=== PATIENT | female | born 1985 | race Caucasian/White ===

== ENCOUNTER → 2022-04-15 12:51 | Outpatient (CLI) | payer OTHER, SELFPAY ==
--- NOTE | 2022-04-15 11:45 | DI.RAD_ITS ---
Exam(s) XR TIB/FIB RT EXAM: XR TIB/FIB RT CLINICAL HISTORY: Anterior leg pain, M79.606, Concern for Foreign Body - Distal/Anterior Leg. TECHNIQUE: 2D digital imaging was performed. COMPARISON: No exams were available for comparison FINDINGS: Two views There is no evidence of fracture nor osseous lesions. However, the tip of the lateral malleolus at t he ankle level is not included in the field of view here. Tibial plateau appears unremarkable. Phle boliths are noted anteriorly. Bone density normal. No osseous lesions. IMPRESSION: No significant radiograph findings although please note the tip of the inferior malleolus is not incl uded in the field of view. If clinically indicated ankle images can be performed. DATA REPOSITORY: RADIATION DOSE DELIVERED:
== END ==
PROVIDERS: Visit Provider Nurse Practitioner Family
DX: M79.604 Pain in right leg (principal)
CPT/HCPCS: 73590

== ENCOUNTER 2024-08-26 03:34 | Outpatient (CLI) | payer OTHER, SELFPAY ==
[2024-08-26 10:13] LABS: HGB 13.9 g/dL (11.2-15.7); MCH 29.6 pg (27.0-33.0); MCHC 32.3 % (32.0-36.0); MCV 92 fL (80-95); MPV 9.5 fL (8.0-11.0); Platelet Count 286 10^3/uL (130-400); RBC 4.69 10^6/uL (3.93-5.22); RDW 12.7 % (11.7-14.6); RDW-SD 42.3 fL; WBC 8.11 10^3/uL (4.4-10.8)
[2024-08-26 10:23] LABS: Anion Gap 5.9 mmol/L (3-11); BUN 14 mg/dL (7-18); CO2 26.1 mmol/L (21.0-32.0); CREATININE 0.7 mg/dL (0.55-1.02); Calcium 9.3 mg/dL (8.5-10.1); Chloride 108 mmol/L (98-107); Estimated GFR 111.36 (mL/min/1.73m2); Glucose 99 mg/dL (74-106); Potassium 4.3 mmol/L (3.5-5.1); Sodium 140 mmol/L (136-145)
[2024-08-26 10:37] LABS: TSH (W/Ref FT4) 3.03 uIU/mL (0.36-3.74)
== END 2024-08-26 03:35 | disposition home or self-care (01) ==
LOC: LBO 03:34
PROVIDERS: Physician Assistant; PCP Family Medicine; Visit Provider Student in an Organized Health Care Education/Training Program
DX: M17.11 Unilateral primary osteoarthritis, right knee (principal); Z01.818 Encounter for other preprocedural examination; E03.9 Hypothyroidism, unspecified
CPT/HCPCS: 36415; 80048; 85027; 84443

== ENCOUNTER 2024-08-26 10:25 | Outpatient (CLI) | payer OTHER, SELFPAY ==
--- NOTE | 2024-08-26 08:45 | DI.RAD_ITS ---
Exam(s) XR STANDING ALIGNMENT XR KNEE RT 1V EXAM: XR STANDING ALIGNMENT CLINICAL HISTORY: PRE OP RIGHT TKA. TECHNIQUE: 2D digital imaging was performed. Standing AP views were performed from the pelvis throu gh the ankles. Lateral view of the right knee COMPARISON: CR XR TIB/FIB RT from 04/15/2022 CR XR KNEE 3V RT from 05/14/2023 CR XR KNEE RT 1V from 08/26/2024 FINDINGS: BONES: No acute fracture is present. No bony destructive lesion is seen. Leg length discrepancy: No significant overall leg length discrepancy. JOINTS: Knees: Severe narrowing of the medial femoral tibial joint space of the right knee. Periarti cular spurring throughout. The femoral tibial joint spaces of the left knee are maintained. Mild sp urring laterally. The ankle joints are unremarkable. The hip joints show mild joint space narrowing bilaterally. SOFT TISSUE: Normal. IMPRESSION: Advanced degenerative changes of the medial femoral tibial joint space of the right knee. No significant leg length discrepancy. DATA REPOSITORY: RADIATION DOSE DELIVERED:
== END 2024-08-26 10:26 | disposition home or self-care (01) ==
LOC: DIORS 15:43
PROVIDERS: PCP Family Medicine; Visit Provider Physician Assistant
DX: M17.11 Unilateral primary osteoarthritis, right knee (principal)
CPT/HCPCS: 73560; 77073

== ENCOUNTER 2024-09-07 07:14 | Day surgery (SDC) | payer OTHER, SELFPAY ==
[2024-09-07] VITALS (41 sets, daily range): BP systolic 99–156; BP diastolic 33–84; PULSE 56–70; RESP 11–23; TEMP 36.3–36.8; O2SAT 92–100; BMI 44.1
--- NOTE | 2024-09-07 06:53 | W.ANESPRE ---
General Info Date of Service Date Performed: 09/07/24 Height: 5 ft 10 in Weight: 139.706 kg Body Mass Index (BMI): 44.1 Surgical Procedure: Operation Date: 09/07/24 09:25 Proposed Procedure Side Surgeon p Knee Total Arthroplasty, Cementless CR Right Magnus Hagan MD Meds Allergies and Home Medications Allergies Allergy/AdvReac Type Severity Reaction Status Date / Time codeine Allergy Intermediate Hives Verified 09/07/24 07:45 Home Medication ?Medication ?Instructions ?Recorded bisoprolol fumarate 5 mg tablet 5 mg PO DAILY 04/16/22 sertraline 100 mg tablet 100 mg PO DAILY 04/16/22 norethindrone (contraceptive) 0.35 0.35 mg PO DAILY 05/14/24 mg tablet (Audra-BE) cyclobenzaprine 10 mg tablet 10 mg PO HS PRN 08/26/24 hydroxyzine HCl 50 mg tablet 50 mg PO QHS PRN 08/26/24 acetaminophen 500 mg tablet 1,000 mg (2 x 500 mg) PO Q8H PRN 09/07/24 pain #90 tabs aspirin 81 mg tablet,delayed 81 mg PO BID 30 days #60 tabs 09/07/24 release celecoxib 200 mg capsule (Celebrex) 200 mg PO BID PRN #60 caps 09/07/24 dexamethasone 4 mg tablet 4 mg PO DAILY #2 tabs 09/07/24 docusate sodium 100 mg capsule 100 mg PO BID #30 caps 09/07/24 (Colace) gabapentin 300 mg capsule 300 mg PO QHS #14 caps 09/07/24 oxycodone 5 mg tablet 5 mg PO Q4H PRN #18 tabs 09/07/24 pantoprazole 40 mg tablet,delayed 40 mg PO DAILY #14 tabs 09/07/24 release Current Visit Medications: Current Medications Generic Name Dose Route Start Last Admin Trade Name Freq PRN Reason Stop Dose Admin Acetaminophen 1,000 mg 09/07/24 06:00 Acetaminophen 500 Mg Tab PO 09/07/24 23:59 PREOP LIBBY Celecoxib 400 mg 09/07/24 06:00 Celecoxib 200 Mg Cap PO 09/07/24 23:59 PREOP LIBBY Gabapentin 300 mg 09/07/24 06:00 Gabapentin 300 Mg Cap PO 09/07/24 23:59 PREOP LIBBY Ringer's Solution 1,000 mls @ 80 mls/hr 09/07/24 06:00 IV 09/07/24 23:59 INFUSION LIBBY Cefazolin Sodium 3,000 mg/ 100 mls @ 200 mls/hr 09/07/24 06:00 Sodium Chloride IV 09/07/24 23:59 PREOP LIBBY Tranexamic Acid/Sodium Chloride 1,000 mg in 100 mls @ 600 mls/hr 09/07/24 06:00 IVPB 09/07/24 23:59 PREOP LIBBY IV Miscellaneous Supplies 1 each 09/07/24 06:00 Iv Access IV 09/07/24 23:59 DIRECTED LIBBY Sodium Chloride 0 ml 09/07/24 06:00 Normal Saline Flush 10 Ml Syr IV 09/07/24 23:59 PRN PRN Sodium Chloride 0 ml 09/07/24 06:00 Normal Saline 10 Ml Vial IJ 09/07/24 23:59 DIRECTED PRN Sterile Water 0 ml 09/07/24 06:00 Water,Injection,Sterile 10 Ml Vial IJ 09/07/24 23:59 DIRECTED PRN PFSH Active Problems Active Problems: Problem Status Onset Code Osteoarthritis of right knee Acute M17.11 Vesicular eczema of hands and feet Acute L30.1 Sleep apnea Acute G47.30 Restless legs Acute G25.81 Nicotine dependence Acute F17.200 Morbid obesity Acute E66.01 Acute eczema Chronic L30.9 Hypothyroidism Chronic E03.9 Anxiety Chronic F41.9 Depression Chronic F32.A Hypertension Chronic I10 Anterior leg pain Acute M79.606 Surgical History Surgical History Hx of wisdom tooth extraction Tobacco Smoking/Tobacco Use Status: Current every day Tobacco Type: cigarettes Second hand exposure: Yes Counseling given: provider counseling Alcohol Alcohol Intake: never Substance Use Substance use: Never Substance use type: does not use Vital Signs and Lab Results Vital Signs Most Recent Vital Signs in EMR: Temp Pulse Resp BP Pulse Ox 36.3 C L 63 16 156/84 H 100 09/07/24 07:34 09/07/24 07:34 09/07/24 07:34 09/07/24 07:34 09/07/24 07:34 Lab Results Blood Type / Crossmatch: No Data to Display Complete Blood Count: White Blood Count 8.11 10^3/uL (4.4-10.8) 08/26/24 10:07 Red Blood Count 4.69 10^6/uL (3.93-5.22) 08/26/24 10:07 Hemoglobin 13.9 g/dL (11.2-15.7) 08/26/24 10:07 Hematocrit 43.0 % (36.0-46.0) 08/26/24 10:07 Platelet Count 286 10^3/uL (130-400) 08/26/24 10:07 Complete Metabolic Panel: Sodium 140 mmol/L (136-145) 08/26/24 10:07 Potassium 4.3 mmol/L (3.5-5.1) 08/26/24 10:07 Chloride 108 mmol/L (98-107) H 08/26/24 10:07 Carbon Dioxide 26.1 mmol/L (21.0-32.0) 08/26/24 10:07 BUN 14 mg/dL (7-18) 08/26/24 10:07 Creatinine 0.7 mg/dL (0.55-1.02) 08/26/24 10:07 Est GFR (CKD-EPI 2020) 111.36 (mL/min/1.73m2) 08/26/24 10:07 Calcium 9.3 mg/dL (8.5-10.1) 08/26/24 10:07 Glucose 99 mg/dL (74-106) 08/26/24 10:07 Liver Function Panel: No Data to Display Coagulation Panel: No Data to Display Cardiac Panel: No Data to Display Arterial Blood Gas: No Data to Display Venous Blood Gas: No Data to Display Pancreas Panel: No Data to Display Thyroid Panel: Thyroid Stimulating Hormone (TSH) 3.03 uIU/mL (0.36-3.74) 08/26/24 10:07 Infectious Disease: No Data to Display Blood Cultures: No Data to Display Toxicology Panel: No Data to Display Panel: No Data to Display Anesthesia Assessment and Plan Anesthesia History Personal History: No History of Anesthesia Complications Family History: No Family History of Anesthesia Complications Exercise Tolerance Exercise Tolerance: Metabolic Equivalents>4 Cardiac & Pulmonary Exam Cardiac Exam: Normal S1/S2 Heart Sounds Pulmonary Exam: Clear Bilateral Breath Sounds Implantable Cardiac Device Does patient have a Pacemaker or an ICD?: No Airway Exam Known Difficult Airway: No Mallampati Class: 3 Mouth Opening: Normal (> 3cm) Thyromental Distance: Less than 3 cm Neck Range of Motion: Full ROM Neck Circumference: Thick Teeth Condition: Normal Dentition ASA Classification ASA Score: ASA 3 Emergency Case?: No NPO Status NPO Status: NPO Clears >2 hours, Solids >8 hours Status Status: Negative HCG Anesthesia Plan Resuscitation Status: Full Code Anesthesia Technique: Spinal Anesthesia Airway Planned: Natural Airway Pain Management: Surgeon and patient request nerve block Monitors Used: Standard Monitors Preoperative Comments:: 39 yo female for TKA. Sig PMHx: HTN (bisoprolol), RLA, anxiety/depression, hypothyroid (last TSH WNL, not on meds), BMI >40, smoker. Denies GERD. Appropriately NPO, currently hungry.
--- NOTE | 2024-09-07 07:25 | PDOC.DSDIS_ITS ---
Date of service: 09/07/24 Discharge Plan Disposition Patient Disposition: Home Condition: Good Discharge Details Reason For Visit: Right knee DJD Attending Provider: Magnus Hagan Primary Care Provider: CATHY VOGEL Home Meds and New Rx's Prescriptions: New celecoxib [Celebrex] 200 mg capsule 200 mg PO BID PRNQty: 60 0RF Rx Instructions: Take one tablet twice daily for pain and inflammation aspirin 81 mg tablet,delayed release (DR/EC) 81 mg PO BID 30 Days Qty: 60 0RF acetaminophen 500 mg tablet 1,000 mg PO Q8H PRN Qty: 90 0RF Rx Instructions: Take two tablets up to every 8 hours as needed for pain pantoprazole 40 mg tablet,delayed release (DR/EC) 40 mg PO DAILY Qty: 14 0RF dexamethasone 4 mg tablet 4 mg PO DAILY Qty: 2 0RF Rx Instructions: Take one tablet once daily for two days docusate sodium [Colace] 100 mg capsule 100 mg PO BID Qty: 30 0RF gabapentin 300 mg capsule 300 mg PO QHS Qty: 14 0RF Rx Instructions: Take one tablet at bedtime oxycodone 5 mg tablet 5 mg PO Q4H PRNQty: 18 0RF Rx Instructions: Take one tablet up to every 4 hours as needed for severe postoperative pain Continued norethindrone (contraceptive) [Audra-BE] 0.35 mg tablet 0.35 mg PO DAILY sertraline 100 mg tablet 100 mg PO DAILY bisoprolol fumarate 5 mg tablet 5 mg PO DAILY hydroxyzine HCl 50 mg tablet 50 mg PO QHS PRN cyclobenzaprine 10 mg tablet 10 mg PO HS PRN Discharge Instructions Additional Instructions: Total Knee Discharge Instructions Activity: The most important activity is to walk and to work on gentle motion (both flexion and extension). You should try to take short walks a few times a day. It is important that when resting you work on keeping the knee straight. Avoid putting a pillow behind the knee as this will encourage flexion. Work on range of motion exercises as provided by Physical Therapy. - Start outpatient physical therapy within 2 weeks. - You should wear the SNEHAL hose on both legs for 2 weeks. You may remove these at night. You may also use any compression sock in place of the SNEHAL hose. - Utilize [employer] to review exercises, see videos on exercises and obtain basic information pertaining to your surgery and your recovery. Dressing: Remove the Emery wrap by 2 days after your surgery and put on the SNEHAL stocking given to you from the hospital. Keep the surgical dressing (underneath the EMERY wrap) in place for at least one week. After the first week it may be removed and replaced with light gauze and tape or nothing. The wound and dressing may get wet after 3 days but avoid soaking the dressing or otherwise it will need to be changed. Many people prefer covering the dressing with cling wrap (saran wrap) to minimize it from getting soaked. If it gets wet, just pat dry. If it starts to peel off then it will need to be changed. Medications: - You should take Tylenol and anti-inflammatory Celebrex as your primary pain control medications. If the Celebrex is too expensive or not covered, please call the office for another alternative (Advil/Ibuprofen or Naproxen/Aleve) - You have been prescribed a stronger pain medication Oxycodone for breakthrough pain, take as needed as prescribed. - You have also been prescribed a stomach acid reduction agent Pantoprozole to help reduce stomach acid and reflux. - You have been prescribed Gabapentin to take at night for restlessness and nerve pain. - You will be taking Aspirin 81mg twice a day for DVT prevention unless instructed otherwise. - You have also been prescribed Decadron to take to control post-operative nausea and pain. You will start this tomorrow. - If you have constipation you should take Colace (which has been prescribed) or Miralax (which is available [id number]). It takes most people 3-4 days to have a bowel movement. Follow-up: 2 weeks If you have any acute concerns or questions, please do not hesitate to contact the office at [phone]. You may contact Dr. Hagan with any questions after hours through the hospital at [phone] or on his cell phone at [phone]. Referrals: Magnus Hagan MD [ [facility] STAFF PHYSICIAN] - Equipment/Supplies: Walker Activity:: Elevate Remove Dressings/Wound Care:: Do Not Remove Shower/Bathe:: Cover Diet:: As Tolerated Discharge Orders Discharge Orders: Discharge Order (Routine); Ordered 09/07/24 Ordered By: Ramona Flor
[2024-09-07] MEDS: Acetaminophen 500 MG TAB 1000 MG PO (07:47)
[2024-09-07] MEDS: Gabapentin 300 MG CAP PO (07:47)
[2024-09-07] MEDS: Celecoxib 200 MG CAP 400 MG PO (07:47)
[2024-09-07] MEDS: Normal Saline 1,000 ML 30 ML IV (07:57)
--- NOTE | 2024-09-07 08:39 | W.ANESNERVE ---
Nerve Block Single Injection Procedure Date and Time Date Performed: 09/07/24 Procedure Start: 08:25 Location Where Procedure Performed Procedure Location: Day Surgery Unit Reason Performed: Postoperative Analgesia Requesting Provider: Magnus Hagan Timeout Performed Timeout Performed: Yes Monitoring Used ECG, Blood Pressure and SpO2 Sterility Sterility: Hand Hygiene, Surgical Cap, Surgical Mask, Sterile Gloves and Chlorhexidine Sedation Given During Procedure Sedation Given (Indicate Dose Given): Versed IV Dose:: 2 mg Patient Mental Status Patient Mental Status: Sedate with meaningful communication Nerve Block 1st Nerve Block: Laterality: Right Block Type: Adductor Canal Ultrasound Image Saved?: Yes Needle / Catheter Used: 120mm SonoPlex II Local Anesthetic Bolus (Indicate Dose Given): Lidocaine used for local infiltration of skin, Injected in 3-5ml increments after negative blood aspiration and Bupivacaine 0.25% Dose:: 13 mL Additives (Indicate Dose Given): None Ultrasound: Not Used Nerve Stimulator: Supplement to Ultrasound use and No twitch or parasthesia noted < 0.5 mA Paresthesia: None Procedure Tolerated: No Complications Procedure Outcome: Successful Performed By: Bhargav Polo
[2024-09-07] MEDS: ceFAZolin 3,000 MG in Normal Saline 100 ML 200 MG IV (08:54)
[2024-09-07] MEDS: TRANEXAMIC ACID/SOD. CHL. 1,000 MG/100 ML BAG 600 MG IVPB (09:09)
--- NOTE | 2024-09-07 09:11 | ROE_ITS ---
Operative Note Operative Note PRE-OP DIAGNOSIS: Right Knee Osteoarthritis POST-OP DIAGNOSIS: same PROCEDURE: Right Total Knee Replacement SURGEON: Magnus Hagan COOPER APPRENTICE: Ramona Flor ANESTHESIA TYPE: Spinal Refer to Anesthesia Record ESTIMATED BLOOD LOSS: 250 PATHOLOGY: none sent TOURNIQUET TIME: 0 COMPLICATIONS: None Patient was transported to: PACU Patient's condition: stable Implants: 1. Depuy Attune Cementless Cruciate Retaining Femoral Component, Size 7 2. Depuy Attune Cementless Fixed Bearing Tibial Component, Size 6 3. Depuy Attune 7x7mm CR/FB Poly 4. Depuy Attune Patellar Component, Size 38 Indications: I have seen Juanita in clinic for symptoms of knee arthritis, confirmed with radiographic findings. She has exhausted nonoperative methods and was having significant limitations in daily function and desired better function and less pain. I discussed the technical details of a knee replacement. I explained the risks of the procedure to include, but not limited to, bleeding, infection, pain, stiffness, fracture, damage to nerves and vessels, damage to muscles and tendons, loosening, need for repeat procedure, blood clot and cardiopulmonary demise. Despite these risks, Juanita elected to proceed. Findings: There was significant signs of arthritis throughout the knee. Procedure Description: Juanita was greeted in the preoperative holding area where the correct side was identified and marked. The consent was reviewed with the patient and signed. The history and physical was updated. All questions were answered. Preoperative medications were administered: Acetaminophen 1000mg, Celebrex 400mg, and Gabapentin 300mg. An adductor canal block was then administered by the anesthesia team in the DSU. She was taken back to the operating room. A spinal anesthestic was then administered. The patient was placed into the supine position on the operating room table. Posts were placed for positioning during the procedure. All bony prominences were well padded. Prophylactic antibiotics in the form of Cefazolin were administered. 1g of Tranxemic Acid was given intravenously within 30 minutes of incision. The right leg was then prepped with Chloraprep and draped in a standard fashion with impervious stockinette. A second prep with Chloraprep was performed prior to application of Iodine impregnated skin protection. A timeout to confirm correct identity, side and site, procedure, allergies, anesthesia, and medical concerns was performed. With the knee in some flexion, a midline incision was made overlying the knee. Full thickness skin flaps were raised once the extensor mechanism was encountered. These were raised medially and laterally. Any bleeding was controlled with electrocautery. Once the extensor mechanism was fully exposed, a medial parapatellar arthrotomy was performed in a flexed position. All bleeding from the arthrotomy and the geniculate arteries was coagulated. A medial subperiosteal peel was performed with electrocautery to the midcoronal plane. The fat pad was removed while keeping the patellar tendon protected. The anterior distal femur synovium was removed for later visualization. The ACL and PCL were resected and the anterior horn of the lateral meniscus was transected. The knee was then flexed with the patella everted. Large osteophytes from the tibia were removed. Large osteophytes from the femur were removed. Using a step drill, and based on preoperative templating, the femoral canal was entered. This was done with a step drill without any difficulty. The intramedullary distal femoral cut guide was inserted, set to a 6 degree valgus cut and 9mm cut thickness. The distal femoral cut guide was then held in position and pinned. With the soft tissues protected, the distal cut was performed. This was passed over a few times to ensure a planar cut. I then turned attention to the tibia. The extramedullary guide was placed onto the leg. The distal aspect was slid medial to adjust for position of center of ankle and stay in line with shaft of the tibia. Approximately 3-5 degrees of posterior slope was kept in the proximal cutting guide. The center of the guide was aligned with the PCL. The stylus was used to assess cut thickness. The tibial cut was balanced at about 6 to 7 mm both medially and laterally. This was then held in position and pinned into place with 2 additional pins and a cross pin for stability. The medial and lateral collateral ligaments were protected and the cut was performed. With this completed, it was assessed and noted to be of appropriate dimensions. The guide was removed. A spacer block was inserted and the knee was brought into extension. The 6mm spacer block provided full extension, without hyperextension and with stability of both the medial and lateral collateral ligaments was assessed. The pins from the femur and the tibia were then removed. The distal femur was then sized. The anterior stylus was placed onto the lateral ridge of the anterior femur. This indicated a size 7 femur. The external rotation of the guide was adjusted to 0 degrees to match the epicondylar axis, perpendicular to [place]?s line. The 4-in-1 cutting guide was the placed. The posterior medial femur cut was evaluated and appeared of good thickness. The spacer block was inserted underneath the cutting guide and stability was confirmed in 90 degrees of flexion. An marleni wing was used to confirm appropriate position of the anterior cut to avoid notching. This cutting guide was ensured to be flush on the cut surface and then pinned into place with headed pins. While protecting the soft tissues, quad tendon, and collateral ligaments, the anterior and posterior cuts were performed with a saw. The central two pins were removed and the posterior and anterior chamfers were cut next. The notch-cutting guide was placed. This was pinned to lateralize the femoral component as much as possible while keeping it flush on the cut surface. This was then pinned into position. A reciprocating saw was used to make the notch cut. A rasp smoothed the cut surfaces. The medial and lateral menisci were removed. A trial femoral component was then inserted, impacted down to the cut surfaces, and the lug holes were drilled. A provisional trial tibial component was placed and the knee was brought through range of motion. The polyethylene was trialed until there was good flexion and extension with excellent stability to the medial and lateral collaterals. The patella was tracking without thumbs. A size 7mm polyethylene component provided the best range of motion and stability with less than 2mm gapping with medial and lateral stress and full extension without significant hyperextension. The tibial cut surface was fully exposed. The tibia was then sized as a 6. The tibia had been previously marked during trialing to correspond to the center of the tibial component to help with rotation. The trial was aligned to this ric, approximately rotated to the medial 1/3rd of the tibial tubercle. The trial was pinned into place. The tibia was prepared with a reamer and a keel punch and lug holes. The knee was then brought into extension and the patella was measured as 25mm. Using the patellar clamp and cut guide, this was resected to a flat surface with at least 13mm of thickness remaining. The size 38 patella fit the best. This w as oriented and then clamped into position. The lugs were drilled. The trial components were removed. The final components were opened on the back table. The periosteal and capsular tissues, especially posteriorly, around the knee were then systematically injected with a periarticular cocktail consisting of 246mg of Ropivacaine, 0.5mg of Epinephrine, 0.08mg of Clonidine, and 30mg of Ketorolac, diluted to 100cc. On the back table, with the implants opened, the cement was mixed. One batch of high viscosity cement was prepared with vacuum assistance. After the cement was ready a small amount was placed on the cut surface of the patella and the patellar button was clamped into position and held. While the cement was hardening, the cementless knee components were placed. Starting with the tibial component, the tibia was subluxed anteriorly and the lug holes of the component were lined up. The tibia was then impacted with an impactor and mallet until the tibial component was in contact with the tibia. The final polyethylene component was inserted. Then, the femoral component was inserted. The lug holes were aligned and the component was impacted into position. The knee was irrigated with Surgiphor Betadine solution. This was allowed to sit in the knee for 3 minutes and then it was irrigated out with saline. After the cement had finally cured, approximately 15min, the clamp was removed from the patella and the knee was taken through range of motion. The patella was tracking with a no-thumbs technique. The capsule was then reapproximated with a No. 1 Vicryl at multiple locations. The capsule was finally closed with a No. 2 Stratafix, barbed suture. The second dosing of 1g TXA was started. Deep tissues were then reapproximated with 0 Vicryl and 2-0 Vicryl. The skin was closed with a running 3-0 Monocryl in a subcuticular fashion. This was reinforced with skin glue. A Mepilex silver dressing was applied along with a [id number] JAIR wrap. A CryoCuff was applied. Juanita was transferred to the hospital bed without difficulty an suffering no apparent complication. She has a good prognosis. Physical therapy will start today and without restri ctions, weight-bearing as tolerated. Aspirin 81mg BID will be used for DVT prophylaxis. Date of Procedure: 09/07/24
[2024-09-07] MEDS: HYDROmorphone 1 MG/ML SYR IVP ×2 (11:09→11:21)
[2024-09-07] MEDS: LORazepam 2 MG/ML VIAL 0.5 MG IVP (11:14)
[2024-09-07] MEDS: Normal Saline 10 ML VIAL IJ (11:14)
--- NOTE | 2024-09-07 11:17 | W.ANESPOSTOP ---
Postoperative Evaluation Date, Time and Location Date Performed: 09/07/24 Time Performed: 11:17 Patient Location: PACU Vital Signs Most Recent Imported Vital Signs: Most Recent Vital Signs Temp Pulse Resp BP Pulse Ox 36.7 C 69 14 102/55 L 98 09/07/24 11:11 09/07/24 11:11 09/07/24 11:15 09/07/24 11:11 09/07/24 11:15 Pain Score Most Recent Pain Score: Most Recent Pain Score Pain Level 0 09/07/24 08:09 Assessment Mental Status: Awake (Alert & Oriented to Patient Baseline) Airway and Respiratory Function: Patent airway with normal (patient baseline) respiratory exam Cardiovascular Function: Hemodynamically Stable Hydration Status: Adequately Hydrated Nausea & Vomiting: No Nausea or Vomiting Pain: Pain is tolerable per patient Peripheral Nerve Block: Regional nerve block not resolved at time of post operative discharge
[2024-09-07] MEDS: ePHEDrine 25 MG/5 ML Syringe IVP (11:50)
[2024-09-07] MEDS: oxyCODONE 5 MG TAB PO (12:48)
--- NOTE | 2024-09-07 15:15 | PT.INIE ---
PT Notes Visit Reasons: Right knee DJD Physical Therapy Day Surgery Initial Evaluation Date: 09/07/2024 Referring Doctor: Dr. Hagan PT Orders: PT CONSULT: Status post Ortho surgery Precautions: Weightbearing as tolerated RLE,TEDS x 2 weeks Patient Profile/Admitting Diagnosis: Patient is a 39-year-old female presented status post elective right TKA under spinal anesthesia postop uncomplicated. PMHX: OA right knee, restless leg syndrome, vesicular eczema, morbid obesity, hypothyroidism, anxiety, sleep apnea, nicotine dependency, depression, HTN Social History/Home Situation: Patient resides in small apartment with 3 steps to enter with 1 rail. She has an elevated toilet/comfort height. She is independent with ADLs ambulation without a device, meal preparation, medication management, home management. Patient drives and does her own shopping. 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 Equipment Owned/DME: [facility] Subjective: Patient reports her pain is managed at this time. Objective: General Observation: Patient presented semireclined on stretcher with Cryo/Cuff to right knee IV infusing right upper extremity. Significant other present Mental Status: Alert and oriented x 4 motivated eager to participate in evaluation Pain: Right knee 3/10 ROM: Right Upper Extremity: WNL Left Upper Extremity: WNL Right Lower Extremity: WNL except knee 0-92 degrees Left Lower Extremity: WNL Strength: Right Upper Extremity: 5/5 Left Upper Extremity: 5/5 Right Lower Extremity: Hip flexion: 3 -/5; hip abduction: 3 -/5; hip extension: 3 -/5; knee extension 3- /5; knee flexion: 2/5 ankle DF: 3/5 ; ankle PF: 3/5; patient demonstrates ability to sustain quad set for 5-second hold, and straight leg raise through reduced range of motion Left Lower Extremity: 5/5 Sensation: Intact slightly diminished along right knee posterior aspect Bed Mobility/Transfers: Supine to sit supervision Sit to supine supervision with increased time to get right lower extremity in bed Sit to stand supervision Stand to sit supervision Bed to chair SBA with FWW Gait: Ambulate 150 feet with FWW supervision on level surfaces including turns initially step to pattern then progressed to reciprocal pattern with decreased step length bilateral lower extremities, decreased knee flexion right during swing phase, early heel off right lower extremity. Stairs: 3 steps with rail CGA/SBA with cues for sequencing step to pattern. Balance: Static Sitting: Normal Dynamic Sitting: Good Static Standing: Good Dynamic Standing: Fair plus Special Tests: Mobility Limitations Standardized Measure [facility] 6 clicks Basic Mobility Inpatient Short Form: Raw Score: 23 CMS Score: 11.20% Informed Consent/Education: Patient instructed in purpose of PT consult. Packet containing TKA exercise protocol has been given to patient. Education and training on initial set of exercises that can be done at home have been completed with patient. Assessment: Patient presents with clinical signs and symptoms consistent with current/admitting diagnoses that have resulted to mobility limitations, gait instability, generalized weakness, and impairment of motor control as demonstrated by the following impairment level findings: 1. Decreased strength to right knee major muscle groups 2. Impaired standing balance 3. Limitation of joint range of motion in right knee 4. Impaired functional activity tolerance and standing Impairments are contributing to the following functional limitations: 1. Inability to safely ambulate without assistive device 2. Increase completion time for mobility ADL performance 3. Increased fall risk 4. difficulty performing stairs safely independently Patient is assessed as a moderate complexity based on the following: History: 39-year-old female with impairment level findings, functional limitations, and past medical history as indicated above Examination: Demonstrable impairment in strength, balance, and mobility level with underlying impairments and functional limitations as documented above Presentation: evolving Decision Making:moderate Goals: N/A. Plan of Care/Treatment Plan: N/A. DISCHARGE RECOMMENDATIONS: Home with outpatient PT as scheduled TREATMENT CODE/TIME: 59134, 67684 / [id number] Thank you for the opportunity to participate in the care of this patient. Yeimi Hi [facility]/ [facility] Please sign an return this page within 30 days if you agree with the above POC. Thank you! Physician Signature Date [facility]
== END 2024-09-07 14:03 | disposition home or self-care (01) ==
PROVIDERS: PCP Family Medicine; Visit Provider Student in an Organized Health Care Education/Training Program
PROC: (CPT 27447; principal; 2024-09-07 09:15)
DX: M17.11 Unilateral primary osteoarthritis, right knee (principal); I10 Essential (primary) hypertension; E03.9 Hypothyroidism, unspecified; F41.9 Anxiety disorder, unspecified; E66.01 Morbid (severe) obesity due to excess calories; F17.210 Nicotine dependence, cigarettes, uncomplicated; Z68.42 Body mass index [BMI] 45.0-49.9, adult; G89.18 Other acute postprocedural pain; M25.561 Pain in right knee
CPT/HCPCS: 27447; 64447; 81025; 97162; 97530; C1776; J0665; J0690; J1100; J1171; J2060; J2250; J2371; J2401; J2405; J2704

== ENCOUNTER 2024-09-20 15:14 | Outpatient (CLI) | payer OTHER, SELFPAY ==
--- NOTE | 2024-09-20 11:15 | DI.RAD_ITS ---
Exam(s) XR KNEE RT 1V XR STANDING ALIGNMENT EXAM: XR STANDING ALIGNMENT and XR knee RT 1 V CLINICAL HISTORY: 1ST POST OP R T,A. TECHNIQUE: 2D digital imaging was performed. Five images were obtained. COMPARISON: CR XR KNEE RT 1V from 08/26/2024 CR XR STANDING ALIGNMENT from 08/26/2024 FINDINGS: Examination limited secondary to the patient's body habitus. BONES: The hips are well maintained. Since the prior examination the patient has undergone a right t otal knee arthroplasty. The orthopedic hardware appears in good position. No suspicious lucencies a re seen in or about the orthopedic hardware. Small osteophytes are seen in the medial and lateral as pects of the left femoral tibial joint. The ankles are well maintained.There is no significant leg l ength discrepancy. SOFT TISSUE: There is mild edema in the right lower extremity consistent with the patient's recent [place] rgery. IMPRESSION: Interval placement of a right total knee arthroplasty. Mild degenerative changes in the left knee. DATA REPOSITORY: RADIATION DOSE DELIVERED:
== END 2024-09-20 15:15 | disposition home or self-care (01) ==
LOC: DIORS 15:14
PROVIDERS: PCP Family Medicine; Visit Provider Student in an Organized Health Care Education/Training Program
DX: Z96.651 Presence of right artificial knee joint (principal); Z47.1 Aftercare following joint replacement surgery
CPT/HCPCS: 73560; 77073

== ENCOUNTER 2025-09-08 14:30 | Outpatient (CLI) | payer OTHER, SELFPAY ==
--- NOTE | 2025-09-08 08:45 | DI.RAD_ITS ---
Exam(s) XR KNEE RT 2V AP,LAT EXAM: XR KNEE RT 2V AP,LAT CLINICAL HISTORY: ANNUAL F/U R TKA. TECHNIQUE: 2D digital imaging was performed. COMPARISON: CR XR KNEE RT 1V from 09/20/2024 FINDINGS: Two views Stable position alignment of the components of the knee prosthesis. No fracture or loosening evident. No evidence of osteomyelitis. IMPRESSION: Stable satisfactory appearance DATA REPOSITORY: RADIATION DOSE DELIVERED:
== END 2025-09-08 14:31 | disposition home or self-care (01) ==
LOC: DIORS 14:30
PROVIDERS: PCP Family Medicine; Visit Provider Student in an Organized Health Care Education/Training Program
DX: Z96.651 Presence of right artificial knee joint (principal)
CPT/HCPCS: 73560